=== PATIENT | male | born 1990 | race Caucasian/White ===

== ENCOUNTER 2022-12-30 10:49 | Outpatient (OUT) | payer BC, SELFPAY | END 2022-12-30 10:50 | disposition home or self-care (01) | PROVIDERS: PCP Urology; Visit Provider Urology | DX: Z01.818 Encounter for other preprocedural examination (principal); N20.1 Calculus of ureter ==

== ENCOUNTER 2023-01-01 12:01 | Day surgery (SDC) | payer BC, SELFPAY ==
[2022-12-30 11:12] VITALS: BP 121/82; PULSE 81; RESP 16; TEMP 36.3; O2SAT 99; BMI 21.4
[2023-01-01] VITALS (10 sets, daily range): BP systolic 123–141; BP diastolic 74–98; PULSE 63–85; RESP 7–20; TEMP 36.1–36.3; O2SAT 97–100; BMI 20.9
--- NOTE | 2023-01-01 12:30 | XR_ITS ---
[address] [address] Patient Name: JOHNNA VILLALOBOS MRN: [id number] date: 1990 Sex: M Assigned Patient Location: [facility] Current Patient Location: [facility] Accession/Order Number: [id number] Exam Date: 01/01/2023 12:15 Report Date: 01/01/2023 15:01 At the request of: TANYA ROSEN Procedure: XR abdomen 1V EXAM: XR abdomen 1V HISTORY: kidney stone COMPARISON: None. TECHNIQUE: AP view of the abdomen. FINDINGS: Nonobstructive bowel gas pattern is noted. There is a faint 3 mm calculus of the left kidney. The osseous structures are intact. XR/XR abdomen 1V IMPRESSION: Nonobstructive bowel gas pattern. Left nephrolithiasis. Electronically authenticated by: DWAYNE RIBERA Date: 01/01/2023 15:01
[2023-01-01] MEDS: LACTATED RINGER'S SOLUTION 1,000 ML 50 ML IV (12:40)
[2023-01-01] MEDS: CEFAZOLIN SODIUM/DEXTROSE,ISO 2 GM/50 ML PIGGYBACK IV (13:50)
--- NOTE | 2023-01-01 14:37 | PM.URSON ---
Urology Surgery Operative Note Operative Note Procedure Date: 01/01/23 Time Out Performed: yes Pre-op Diagnosis: Left ureteral stone Post-op Diagnosis: same as pre-op Procedures performed: Left extracorporeal shockwave lithotripsy Anesthesia: General-LMA (Faith Sahni CRNA) Primary Surgeon: Kirsten Browning Complications: none Estimated blood loss (mL): 0 Findings: Radiopaque left mid ureteral stone level of inferior L3, uncomplicated shockwave lithotripsy Specimens: none Drains: none Indications for Procedures: The patient was evaluated in clinic and deemed a candidate for left extracorporeal shock wave lithotripsy, possible retrograde pyelogram, ureteroscopy, laser lithotripsy, stent placement. Risks were discussed to include but not limited to bleeding, pain, infection, damage to surrounding structures, inability to treat the stone, residual fragments, obstruction and need for additional procedures. Detailed description of Procedure: After informed consent was obtained, the patient was brought to the operating room and placed on the lithotripsy bed in supine position. Sequential compression devices were placed on bilateral lower extremities. The patient received the appropriate dose of preoperative IV antibiotics and general anesthesia LMA was induced. An operative time out was performed confirming the patient's identity, procedure, laterality and safety checks. The patient was positioned with the Siemens Modularis Lithostar lithotripter head on the left flank. The ureteral stone was triangulated using fluoroscopy. A total of 3000 shocks were provided and the stone was seen to fragment well. It was no longer visualized. The procedure was concluded and patient was awakened from anesthesia in stable condition. The patient tolerated the procedure well without complications. Plan: Discharge home with strainer and tamsulosin. Follow up in 6 weeks with [facility] and renal US.
== END 2023-01-01 15:49 | disposition home or self-care (01) ==
PROVIDERS: Visit Provider Urology
PROC: (CPT 50590; principal; 2023-01-01 13:50)
DX: N20.1 Calculus of ureter (principal); Z87.442 Personal history of urinary calculi; R30.0 Dysuria; K50.90 Crohn's disease, unspecified, without complications; N28.1 Cyst of kidney, acquired; Z87.891 Personal history of nicotine dependence
CPT/HCPCS: 50590; 74018; J2704